=== PATIENT | female | born 1975 | race Caucasian/White ===

== ENCOUNTER 2018-05-18 14:42 | Emergency (ER) | payer MEDICAID, OTHER ==
[~2018-05-18] VITALS: Ht 162.6 cm; Wt 69.9 kg
[2018-05-18 15:08] VITALS: BP 111/74
--- NOTE | 2018-05-18 15:24 | Emergency Room Report ---
History of Present Illness General Chief Complaint: General Complaint Source: Patient Present Illness HPI 42-year-old female patient presents to ER with multiple complaints. Patient reports frequency with urination for the past few days. Patient reports foul- smelling odor during in the urine this time. Denies vaginal discharge. reports recent sexual activity with protection. denies concern for STI. Denies dysuria, hematuria. Denies fever, chest pain, shortness of breath, vomiting, flank pain. Reports that she was treated about a month ago for a urinary tract infection with Keflex, reports symptoms resolved at that time following treatment. Patient also complaining of numbness in her right arm that radiates down to her hand. Patient reports no recent injury or trauma. Patient reports she has not taken any medication for relief symptoms. Patient denies loss of sensation or loss range of motion. Reports she is right-hand dominant. Allergies: Coded Allergies: No Known Allergies (Unverified , 05/18/18) Patient History Past Medical History: see triage record Last Menstrual Period: 05/14/2018 Reviewed Nursing Documentation: PMH: Agreed; PSxH: Agreed Nursing Documentation-PMH Past Medical History: No History, Except For Review of Systems All Other Systems: negative except mentioned in HPI Physical Exam Vital Signs Date Time Temp Pulse Resp B/P (MAP) Pulse Ox O2 Delivery O2 Flow Rate FiO2 05/18/18 14:51 99.1 78 15 111/74 96 Room Air 99.1 Sp02 EP Interpretation: reviewed, normal General Appearance: well appearing, no apparent distress, alert, GCS 15, non- toxic Head: normocephalic, atraumatic Eyes: bilateral eye normal inspection, bilateral eye PERRL ENT: hearing grossly normal, normal pharynx, no angioedema, normal voice, uvula midline, moist mucus membranes Neck: full range of motion Respiratory: lungs clear, normal breath sounds, no rhonchi, no respiratory distress, no accessory muscle use, no wheezing, speaking full sentences Cardiovascular #1: regular rate, rhythm, no edema Gastrointestinal: non tender, soft, no mass, non-distended, no guarding, no rebound Genitourinary: no CVA tenderness, deferred Musculoskeletal: back normal, digits/nails normal, gait/station normal, normal range of motion, non-tender, other - positive Phalen sign, positive no sign, pain with resisted wrist extension, NVI, no snuffbox tenderness, cap refill less than 2 seconds, sensation intact to light touch, nonerythematous joints, no warmth to touch, no ecchymosis or edema, tender - right lateral elbow Neurologic: alert, oriented x3, responsive, motor strength/tone normal, sensory intact Psychiatric: mood/affect normal Skin: no rash Medical Decision Making PA Attestation Dr. Cheng is my supervising Physician whom patient management has been discussed with. Diagnostic Impression: Primary Impression: Carpal tunnel syndrome of right wrist Additional Impressions: Lateral epicondylitis Urinary tract infection ER Course Pt presents to ED c/o urinary symptoms. DDX considered but are not limited to cystitis, pyelonephritis, STI, vaginitis, . 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 VITAL SIGNS are WNL, patient is afebrile. Ordered UA. ER COURSE UA results show nitrite positive, indicate UTI, will treat with abx. will treat with alternative medication than Keflex previously received. will treat with Macrobid. Urine negative. Results discussed with patient. If concern for STI, followup with STI clinic for testing and treatment. Denies STI concern. discus referral to /presidential support specialist. patient denies recent injury or trauma, does not require imaging at this time, low suspicion for fracture. patient has positive Tinel's sign and Phalen's sign suspicious for carpal tunnel. provided patient with wrist splint. Patient has positive pain with resisted wrist extension, suspicious for lateral epicondylitis. advised patient on counterforce band. Follow-up with primary care provider at scheduled appointment next week, discuss referral for further imaging and to physical therapy. Take Tylenol for pain symptoms. Patient is resting comfortably in chair, nontoxic appearing, in no acute distress. Patient states they feel better and is ready to go home. DISCHARGE -Rx provided for Robaxin -Rx provided for Tylenol -Rx provided for Macrobid Patient is stable for discharge. Patient resting comfortably, in no acute distress, nontoxic appearing, talking without difficulty. Will provide with patient care instructions and any necessary prescriptions. Patient understands and agrees to treatment plan. Patient encouraged to drink plenty of fluids. Patient to take medication as instructed. Care plan and follow-up instructions provided. Patient questions asked and answered. Reports understanding and agreement to treatment plan. Patient instructed to follow-up with primary care provider in 3 - 5 days. ER precautions given. Patient instructed to return to ER immediately for any new or worsening of symptoms. Including but not limited to fever, abdominal pain , intractable vomiting. - Please note that this Emergency Department Report was dictated using [employer] delive[employer] technology software, occasionally this can lead to erroneous entry secondary to interpretation by the dictation equipment. Labs Test 05/18/18 15:08 Urine Color Pale yellow Urine Appearance Slightly cloudy Urine pH 6 (4.5-8.0) Urine Specific [place] 1.020 (1.005-1.035) Urine Protein Negative (NEGATIVE) Urine Glucose (UA) Negative (NEGATIVE) Urine Ketones Negative (NEGATIVE) Urine Blood 2+ (NEGATIVE) Urine Nitrite Positive (NEGATIVE) Urine Bilirubin Negative (NEGATIVE) Urine Urobilinogen Normal MG/DL (0.0-1.0) Urine Leukocyte Esterase 2+ (NEGATIVE) Urine RBC 2-4 /HPF (0 - 2) Urine WBC 2-4 /HPF (0 - 2) Urine Squamous Epithelial Cells Few /LPF (NONE/OCC) Urine Bacteria Few /HPF (NONE) Urine HCG, Qualitative Negative (NEGATIVE) Last Vital Signs Date Time Temp Pulse Resp B/P (MAP) Pulse Ox O2 Delivery O2 Flow Rate FiO2 05/18/18 15:08 99.1 15 111/74 96 Room Air 99.1 05/18/18 14:51 78 Status: improved Disposition: HOME, SELF-CARE Condition: Stable Scripts Nitrofurantoin Monohyd/M-Cryst* (MACROBID 100 MG*) 100 Mg Capsule 100 MG ORAL EVERY 12 HOURS for 7 Days, #14 CAP Prov: Kristian Valadez P.A. 05/18/18 Acetaminophen* (TYLENOL EXTRA STRENGTH*) 500 Mg Tablet 500 MG ORAL Q8H PRN for Prn Headache/Temp > 101, #30 TAB 0 Refills Prov: Kristian Valadez P.A. 05/18/18 Methocarbamol* (ROBAXIN*) 500 Mg Tablet 500 MG PO TID, #21 TAB 0 Refills Prov: Kristian Valadez P.A. 05/18/18 Patient Instructions: Carpal Tunnel Syndrome, Lateral Epicondylitis With Rehab- [facility], Urinary Tract Infection, [id number] Additional Instructions: Patient instructed to follow up with primary care provider and discuss further referral to orthopedics/physical therapy/pain management as needed. If unable to followup with PCP, followup with orthopedic urgent care in 5-7 days , call to schedule appointment. Patient instructed on RICE method: rest, ice, compression, elevation. Purchase counterforce brace for lateral epicondylitis. Patient instructed to WBAT. Drink plenty of fluids. Take medications as directed. Discuss referral to urology due to continue urinary symptoms. Patient questions asked and answered. ER precautions given, patient instructed to return to ER immediately for any new or worsening of symptoms. [facility] [address] [facility] [address] [facility], [address] [email or web address] Kristian Valadez May 18, 2018 15:24
[2018-05-18] MEDS ORDERED: TYLENOL EXTRA500 MG ORAL (15:25)
[2018-05-18] MEDS ORDERED: METRONIDAZOLE500 MG ORAL (15:25)
[2018-05-18] MEDS ORDERED: ROBAXIN500 MG PO (15:25)
[2018-05-18 15:27] LABS: APPEARANCE,URINE SLIGHTLY CLOUDY; BILIRUBIN, URINE NEGATIVE (NEGATIVE); COLOR,URINE PALE YELLOW; GLUCOSE, URINE (UA) NEGATIVE (NEGATIVE); KETONES,URINE NEGATIVE (NEGATIVE); LEUKOCYTE ESTERASE ,URINE 2+ (NEGATIVE); NITRITE,URINE POSITIVE (NEGATIVE); PH,URINE 6 (4.5-8.0); PROTEIN,URINE NEGATIVE (NEGATIVE); UROBILINOGEN,URINE NORMAL MG/DL (0.0-1.0)
[2018-05-18] MEDS ORDERED: NITROFURANTOIN100 M2 ORAL (15:46)
[2018-05-18 15:54] VITALS: BP 111/74
== END 2018-05-18 15:55 | disposition home or self-care (01) ==
LOC: EMR 15:50
DX: G56.01 Carpal tunnel syndrome, right upper limb (principal); M77.11 Lateral epicondylitis, right elbow; N39.0 Urinary tract infection, site not specified
CPT/HCPCS: 81003; 81025; 99283